=== PATIENT | female | born 1980 | race Caucasian/White ===

== ENCOUNTER → 2016-04-10 | Outpatient (CLI) | payer BC ==
[~2016-04-10] MED LIST: ASPCH81X PO; PRENTAB26 PO
[2016-04-10 13:15] LABS: PREG INTERNAL NEGATIVE QC NEG CLEAR BACKGROUND; PREG INTERNAL POSITIVE QC POS CONTROL LINE
== END | disposition home or self-care (01) ==
LOC: C.LABMFLN 11:17
PROVIDERS: ATTEND Family Medicine
DX: N91.2 Amenorrhea, unspecified (principal)

== ENCOUNTER → 2016-06-18 | Outpatient (CLI) | payer BC | END | disposition home or self-care (01) | LOC: C.LABMFLN 10:38 | PROVIDERS: ATTEND Obstetrics & Gynecology | DX: O09.299 Supervision of pregnancy with other poor reproductive or obstetric history, unspecified trimester (principal); Z3A.00 Weeks of gestation of pregnancy not specified ==

== ENCOUNTER → 2016-06-20 | Outpatient (CLI) | payer BC | END | disposition home or self-care (01) | LOC: C.LABMFLN 09:14 | PROVIDERS: ATTEND Obstetrics & Gynecology | DX: O09.299 Supervision of pregnancy with other poor reproductive or obstetric history, unspecified trimester (principal); Z3A.00 Weeks of gestation of pregnancy not specified ==

== ENCOUNTER → 2016-08-16 | Outpatient (CLI) | payer BC | END | disposition home or self-care (01) | LOC: C.LABMFLN 11:01 | PROVIDERS: ATTEND Obstetrics & Gynecology | DX: O09.299 Supervision of pregnancy with other poor reproductive or obstetric history, unspecified trimester (principal); Z3A.00 Weeks of gestation of pregnancy not specified ==

== ENCOUNTER → 2016-08-20 | Outpatient (CLI) | payer BC | END | disposition home or self-care (01) | LOC: C.LABMFLN 11:15 | PROVIDERS: ATTEND Obstetrics & Gynecology | DX: O09.299 Supervision of pregnancy with other poor reproductive or obstetric history, unspecified trimester (principal); Z3A.00 Weeks of gestation of pregnancy not specified ==

== ENCOUNTER → 2016-09-04 | Outpatient (CLI) | payer BC ==
[2016-09-04 16:33] LABS: URINE APPEARANCE CLEAR (CLEAR); URINE BILIRUBIN NEG (NEG); URINE COLOR YELLOW; URINE NITRITE NEG (NEG); URINE PH 5.5 (4.5-7.5); URINE SPECIFIC GRAVITY 1.019 (1.000-1.030); UROBILINOGEN NEG (NEG)
[2016-09-04 16:47] LABS: MANUAL MICROSCOPIC REQUIRED? NO; REVIEW REQ? NO
== END | disposition home or self-care (01) ==
LOC: C.LABSPEC 15:51
PROVIDERS: ATTEND Obstetrics & Gynecology
DX: O09.529 Supervision of elderly multigravida, unspecified trimester (principal); Z3A.00 Weeks of gestation of pregnancy not specified

== ENCOUNTER → 2016-09-12 | Outpatient (CLI) | payer BC ==
[2016-09-16 09:14] LABS: CHLAMYDIA TRACH RNA*** NOT DETECTED (NOT DETECTED); GC (NEIS GONORRHOEAE)RNA** NOT DETECTED (NOT DETECTED)
== END | disposition home or self-care (01) ==
LOC: C.LABSPEC 13:13
PROVIDERS: ATTEND Obstetrics & Gynecology
DX: O09.299 Supervision of pregnancy with other poor reproductive or obstetric history, unspecified trimester (principal)

== ENCOUNTER → 2016-09-12 | Outpatient (CLI) | payer BC ==
[2016-09-12 14:41] LABS: BASO % 0.3 %; BASO ABS # 0.02 K/uL (0-0.2); COMPLETE YES; EOS % 1.3 %; HEMATOCRIT 41.2 % (37-47); IG% 0.1 %; LYMPH % 15.8 %; LYMPH ABS # 1.18 K/uL (1.2-3.4); MEAN CELL VOLUME 86.4 fL (80-100); MEAN CORPUSCULAR HEMOGLOBIN 31.2 pg (25-34); MEAN CORPUSCULAR HGB CONC 36.2 g/dl (32-36); MEAN PLATELET VOLUME 9.8 fL (7.4-10.4); MONO % 9.8 %; NEUT % 72.7 %; PLATELET COUNT 266 K/uL (130-400); RED BLOOD COUNT 4.77 M/uL (4.2-5.4); WHITE BLOOD COUNT 7.45 K/uL (4.8-10.8)
== END | disposition home or self-care (01) ==
LOC: C.LAB1850 12:31
PROVIDERS: ATTEND Obstetrics & Gynecology
DX: O09.299 Supervision of pregnancy with other poor reproductive or obstetric history, unspecified trimester (principal)

== ENCOUNTER → 2016-09-30 | Outpatient (CLI) | payer BC | END | disposition home or self-care (01) | LOC: C.LAB1850 13:58 | PROVIDERS: ATTEND Obstetrics & Gynecology | DX: O09.299 Supervision of pregnancy with other poor reproductive or obstetric history, unspecified trimester (principal); Z3A.00 Weeks of gestation of pregnancy not specified ==

== ENCOUNTER → 2016-11-06 | Outpatient (CLI) | payer BC ==
[2016-11-06 17:45] LABS: GTGD 50 Grams
== END | disposition home or self-care (01) ==
LOC: C.LAB1850 16:12
PROVIDERS: ATTEND Obstetrics & Gynecology
DX: O09.291 Supervision of pregnancy with other poor reproductive or obstetric history, first trimester (principal)

== ENCOUNTER 2016-12-08 12:26 | Outpatient (CLI) | payer BC ==
[~2016-12-08] VITALS: Ht 165.1 cm; Wt 84.8 kg
[2016-12-08 14:35] VITALS: Ht 165.1 cm; Wt 84.8 kg
[2016-12-08] MEDS ORDERED: PRENTAB26 PO (14:37)
[2016-12-08] MEDS ORDERED: ASPCH81X PO (14:37)
== END 2016-12-08 13:25 | disposition home or self-care (01) ==
LOC: C.LD 12:26 → C.OPB 12:26
PROVIDERS: ATTEND Obstetrics & Gynecology
DX: O34.42 Maternal care for other abnormalities of cervix, second trimester (principal); O46.93 Antepartum hemorrhage, unspecified, third trimester; O09.522 Supervision of elderly multigravida, second trimester; Z3A.20 20 weeks gestation of pregnancy

== ENCOUNTER → 2017-01-29 | Outpatient (CLI) | payer BC ==
[2017-01-29 17:16] LABS: URINE APPEARANCE CLEAR (CLEAR); URINE BILIRUBIN NEG (NEG); URINE COLOR YELLOW; URINE NITRITE NEG (NEG); UROBILINOGEN NEG (NEG)
[2017-01-29 17:21] LABS: MANUAL MICROSCOPIC REQUIRED? NO; REVIEW REQ? YES
== END | disposition home or self-care (01) ==
LOC: C.LABSPEC 16:45
PROVIDERS: ATTEND Obstetrics & Gynecology
DX: O09.523 Supervision of elderly multigravida, third trimester (principal); Z3A.00 Weeks of gestation of pregnancy not specified

== ENCOUNTER → 2017-01-29 | Outpatient (CLI) | payer BC ==
[2017-01-29 18:08] LABS: HEMATOCRIT 38.3 % (37-47)
[2017-01-29 18:31] LABS: GTGD 50 Grams
== END | disposition home or self-care (01) ==
LOC: C.LAB1850 15:35
PROVIDERS: ATTEND Obstetrics & Gynecology
DX: O09.523 Supervision of elderly multigravida, third trimester (principal); Z3A.00 Weeks of gestation of pregnancy not specified

== ENCOUNTER → 2017-02-10 | Outpatient (CLI) | payer BC | END | disposition home or self-care (01) | LOC: C.LAB1850 08:48 | PROVIDERS: ATTEND Obstetrics & Gynecology | DX: O28.1 Abnormal biochemical finding on antenatal screening of mother (principal); Z3A.00 Weeks of gestation of pregnancy not specified ==

== ENCOUNTER → 2017-04-04 | Outpatient (CLI) | payer BC | END | disposition home or self-care (01) | LOC: C.LABSPEC 16:57 | PROVIDERS: ATTEND Obstetrics & Gynecology | DX: O09.523 Supervision of elderly multigravida, third trimester (principal) ==

== ENCOUNTER 2017-05-05 19:07 | Outpatient (CLI) | payer BC ==
[~2017-05-05] VITALS: Ht 165.1 cm; Wt 100.0 kg
[2017-05-05 20:08] VITALS: Ht 165.1 cm; Wt 100.0 kg
[2017-05-05] MEDS ORDERED: CLR10 PO (20:10)
[2017-05-06] MEDS ORDERED: DOCU-94 PO (08:54)
== END 2017-05-05 21:05 | disposition home or self-care (01) ==
LOC: C.OPB 19:07 → C.LD 19:07 → C.OPB 21:05 → EDSTATUS 05-06 16:10
PROVIDERS: ATTEND Obstetrics & Gynecology
DX: O48.0 Post-term pregnancy (principal); O34.43 Maternal care for other abnormalities of cervix, third trimester; O09.523 Supervision of elderly multigravida, third trimester; Z3A.41 41 weeks gestation of pregnancy

== ENCOUNTER 2017-05-06 08:03 | Inpatient (IN) | payer BC ==
[~2017-05-06] VITALS: Ht 165.1 cm; Wt 100.0 kg
[~2017-05-06 08:03] MED LIST changes: -ASPCH81X PO; +CLR10 PO
[2017-05-06 08:50] VITALS: Ht 165.1 cm; Wt 100.0 kg
[2017-05-06] MEDS ORDERED: DOCU-94 PO (08:54)
[2017-05-06] MEDS ORDERED: LACTATED RINGER'S 1000ML 1,000 ML IV PRN (09:14)
[2017-05-06] MEDS ORDERED: LACTATED RINGER'S 1000ML 500 ML IV PRN ×2 (09:17→17:35)
[2017-05-06] MEDS ORDERED: OXYTOCIN 30 UNITS/500ML NSS IV PRN (09:30)
[2017-05-06 09:47] LABS: HEMATOCRIT 38.3 % (37-47); HEMOGLOBIN 13.4 g/dL (12.0-16.0); MEAN CELL VOLUME 90.8 fL (80-100); MEAN CORPUSCULAR HEMOGLOBIN 31.8 pg (25-34); MEAN PLATELET VOLUME 9.5 fL (7.4-10.4); PLATELET COUNT 181 K/uL (130-400); RED CELL DISTRIBUTION WIDTH CV 13.9 % (11.5-14.5); RED CELL DISTRIBUTION WIDTH SD 45.7 fL (36.4-46.3); WHITE BLOOD COUNT 11.22 K/uL (4.8-10.8)
[2017-05-06] MEDS: LACTATED RINGER'S 1000ML 1,000 ML IV SCH ×2 (10:29→19:03)
[2017-05-06] MEDS ORDERED: BUPIVACAINE 0.25% 30 ML VIAL ONE (16:36)
[2017-05-06] MEDS ORDERED: EpHEDrine SULFATE INJ 50 MG/ML AMP ONE (16:37)
[2017-05-06] MEDS ORDERED: FENTANYL CITRATE INJ 50 MCG/1 ML 2 ML VIAL ONE (16:37)
[2017-05-06] MEDS ORDERED: FENTANYL 2MCG/ML ROPIV 1.25MG/ML 100ML BAG EPI ONE (16:38)
[2017-05-06] MEDS ORDERED: NALOXONE HCL INJ 1 MG in SODIUM CHLORIDE 0.9% 1000ML 1,000 ML IV PRN (17:35)
[2017-05-06] MEDS ORDERED: ONDANSETRON INJ 2 MG/ML 2 ML VIAL IV PRN (17:45)
[2017-05-06] MEDS ORDERED: DiphenhydrAMINE HCL 50 MG/ML VIAL IV PRN (17:45)
[2017-05-06] MEDS ORDERED: EpHEDrine SULFATE INJ 50 MG/ML AMP IV PRN (17:45)
[2017-05-06] MEDS ORDERED: NALBUPHINE HCL INJ 10 MG/ML AMP IV PRN (17:45)
[2017-05-06] MEDS ORDERED: NALOXONE HCL INJ 0.4 MG/1 ML VIAL/CARP IV PRN (17:45)
[2017-05-06] MEDS: FENTANYL 2MCG/ML ROPIV 1.25MG/ML 100ML BAG EPI PRN (19:05)
[2017-05-07] VITALS (15 sets, daily range): BP systolic 103–111; BP diastolic 61–64; PULSE 66–81; TEMP 36.6–36.7; O2SAT 97–100
[2017-05-07] MEDS: FENTANYL 2MCG/ML ROPIV 1.25MG/ML 100ML BAG EPI PRN (00:42)
[2017-05-07] MEDS: LACTATED RINGER'S 1000ML 1,000 ML IV SCH (02:17)
[2017-05-07] MEDS ORDERED: LACTATED RINGER'S 1000ML 1,000 ML IV SCH ×2 (05:42→07:30)
[2017-05-07] MEDS ORDERED: CITRIC ACID/SODIUM CITRATE 15 ML UDC PO ONE (05:45)
[2017-05-07] MEDS ORDERED: CITRIC ACID/SODIUM CITRATE 15 ML UDC ONE (06:03)
[2017-05-07] MEDS ORDERED: CEFAZOLIN IV 3,000 MG in SYRINGE 0 ML IV STA (06:06)
[2017-05-07] MEDS ORDERED: CARBOPROST TROMETHAMINE 250 MCG/ML AMP ONE (06:42)
--- NOTE | 2017-05-07 07:29 | [facility] Post Operative Brief Note ---
Immediate Operative Summary Operative Date May 07, 2017. Pre-Operative Diagnosis Primary Caesarean Section for Arrest of Descent Post-Operative Diagnosis same + left hysterotomy extension Procedure(s) Performed Lower Uterine Transverse Caesarean Section Surgeon Dr. Gaines Rn Hemodialysis Surgeon(s) Dr Rand Estimated Blood Loss 900 Findings Consistent with Post-Op Diagnosis Specimens A: Cord Blood B: Placenta Drains Kan - blood-tinged at conclusion of case Anesthesia Type L&D Only EPID Exist Complication(s) Extension of uterine incision, left apex into cervix Disposition Accompanied Pt To Recover: no Disposition: L&D
[2017-05-07] MEDS ORDERED: LANOLIN OINT EXT PRN (07:30)
[2017-05-07] MEDS ORDERED: BENZOCAINE 20% AER SPR 82.5 GM CAN EXT PRN (07:30)
[2017-05-07] MEDS ORDERED: MAGNESIUM HYDROXIDE SUSP 30 ML UDC PO PRN (07:30)
[2017-05-07] MEDS ORDERED: HYDROCORTISONE ACETATE 25 MG SUPP PR PRN (07:30)
[2017-05-07] MEDS ORDERED: DC INTRASPINAL MORPHINE PRN (07:45)
[2017-05-07] MEDS ORDERED: MoRPHine SULFATE PF 1 MG/ML 10 ML AMP/VIAL EPI PRN (07:45)
[2017-05-07] MEDS ORDERED: EpHEDrine SULFATE INJ 50 MG/ML AMP IV PRN (07:45)
[2017-05-07] MEDS ORDERED: ONDANSETRON INJ 2 MG/ML 2 ML VIAL IV PRN (07:45)
[2017-05-07] MEDS ORDERED: CONTINUE MEDICATION ONE (07:45)
[2017-05-07] MEDS ORDERED: HYDROmorphone INJ 1 MG/ML SYR IV PRN (07:45)
[2017-05-07] MEDS ORDERED: ATROPINE SULFATE 0.1 MG/ML 5ML SYR IV PRN (07:45)
[2017-05-07] MEDS ORDERED: FENTANYL CITRATE INJ 50 MCG/1 ML 2 ML VIAL IV PRN (07:45)
[2017-05-07] MEDS ORDERED: MoRPHine SULFATE 2 MG/ML CARP IV PRN (07:45)
[2017-05-07] MEDS ORDERED: DiphenhydrAMINE HCL 50 MG/ML VIAL IV PRN (07:45)
[2017-05-07] MEDS ORDERED: PHENYLEPHRINE 100MCG/ML 5ML SYR IV PRN (07:45)
[2017-05-07] MEDS ORDERED: NO NARCOTICS OR SEDATIVES SCH (07:45)
[2017-05-07] MEDS ORDERED: PROMETHAZINE HCL INJ 12.5 MG in SODIUM CHLORIDE 0.9% 50ML 50 ML IV PRN (07:45)
[2017-05-07] MEDS ORDERED: OXYTOCIN INJ 30 UNITS in LACTATED RINGER'S 1000ML 1,000 ML IV SCH (07:45)
--- NOTE | 2017-05-07 07:58 | Anesthesiology Progress Note ---
Anesthesia Post Op Note Date & Time May 07, 2017 at 07:58 Vital Signs Pain Intensity: 2.0 Notes Mental Status: alert / awake / arousable, participated in evaluation Pt Amnestic to Procedure: Yes Nausea / Vomiting: adequately controlled Pain: adequately controlled Airway Patency, RR, SpO2: stable & adequate BP & HR: stable & adequate Hydration State: stable & adequate Neuraxial Anesthesia: was administered, sensory block is resolving Anesthetic Complications: no major complications apparent
[2017-05-07] MEDS: DOCUSATE SODIUM 100 MG CAP PO SCH ×2 (08:00→20:07)
[2017-05-07 08:22] LABS: HEMATOCRIT 37.2 % (37-47)
[2017-05-07] MEDS: MEPERIDINE HCL 25 MG/ML CARP IV PRN ×2 (08:35→08:48)
--- NOTE | 2017-05-07 11:09 | OPERATIVE REPORT ---
DATE OF OPERATION: 05/07/2017 PREDELIVERY DIAGNOSES: 1. A 37-year-old G5, P2-0-2-2 at 41 weeks 3 days. 2. Induction of labor secondary to post-dates. 3. Advanced maternal age. 4. Arrest of descent. POSTDELIVERY DIAGNOSES: Same plus left hysterotomy extension to cervix. PROCEDURE PERFORMED: Primary low transverse section. SURGEON: Dr. Hidla Gaines. CLOCK AND WATCH HANDS DIPPER: Dr. Rand. ESTIMATED BLOOD LOSS: 900 mL. FINDINGS: Viable male , Apgars 8 and 9, weight 9 pounds 8 ounces. Normal tubes and ovaries. SPECIMENS: Cord blood and placenta. DRAINS: Kan blood tinged at the conclusion of the case. ANESTHESIA: Epidural redosing. COMPLICATIONS: Extension of uterine incision at the left apex of the hysterotomy into the cervix. DISPOSITION: Stable and good to recovery room. INDICATIONS FOR DELIVERY: Jennifer Suresh is a 37-year-old G5, P2-0-2-2 at 41 weeks 3 days, who underwent induction of labor secondary to post-dates , history of vaginal delivery x2. Both prior babies delivered at term with 8+ pounds. For this induction, the patient received a Kan balloon for cervical ripening. Then received Pitocin for induction of labor. She had artificial rupture of membranes for clear fluid. She progressed to complete with epidural anesthesia. She then pushed for an approximately 2 hours with a station not proceeding beyond 0 station. The patient was allowed to rest and due to her history of vaginal delivery x2 of relatively large babies in the past, we attempted to allow the baby to labor down with the use of the peanut ball for approximately 1 hour. She then began to push again for approximately 1 additional hour and at this point, the station did not progress beyond 0 station and decision was made for section due to arrest of descent. DESCRIPTION OF PROCEDURE: The patient was seen in her labor and delivery room where a section was discussed, risks of alternatives and benefits were reviewed. She elected to proceed with section. Informed consent was obtained. All questions were answered. She was taken to the operating room where epidural anesthesia was redosed. She was prepared and draped in the usual sterile fashion in the supine position with a leftward tilt. She received 3 grams of Ancef due to body weight of 100 kilograms. Timeout was confirmed. The Pfannenstiel skin incision was made with a scalpel and carried through to the underlying layer of fascia. This was nicked at midline and the incision was extended bilaterally bluntly. The superior aspect of the fascial incision was grasped with Lilian clamps x2, elevated off the underlying rectus abdominis muscles and dissected bluntly. The inferior aspect of the fascial incision was grasped with Lilian clamps and dissected off the underlying rectus abdominis muscle sharply and bluntly. The rectus muscles were in the midline. Peritoneum was entered bluntly digitally. The bladder flap was created using Metzenbaum scissors, a bladder blade was replaced. The hysterotomy incision was made with a scalpel and this incision was extended bilaterally bluntly. The head was wedged into the pelvis and an operating room assistant with sterile gloves was asked to provide upward pressure to dislodge the head from the pelvis. The head was then delivered and the baby was delivered from a cephalic presentation. Head delivered followed by the anterior and posterior shoulders followed by the body. The cord was doubly clamped and cut. The baby was handed off to the waiting pediatrics team. A spontaneous cry was heard. The cord segment was retained for cord gases. Cord blood was obtained. The placenta was then delivered manually. The uterus was exteriorized. The uterus was swept of all clots and debris. The uterus began to become firm. Pitocin was given. A left uterine hysterotomy extension was noted approximately 4-5 cm down the left side of the uterus, presumably from the large head wedged into the pelvis. Using 0 Vicryl in a running locked stitch, the extension was reapproximated. This achieved good hemostasis. At this time, delivery of baby and repair of the uterine extension approximately 700 mL of blood loss was estimated by visualization of lap sponges. We asked anesthesia to draw H&H labs as well as to type and cross the patient for blood products, due to concern for blood loss due to the hemorrhage occurring with the uterine extension; however, as we were able to get the bleeding to stop relatively quickly, we did not begin blood transfusion at that time as patient's vitals were stable and bleeding was controlled. Will plan to continue to watch vitals, urine output, and patient's condition and labs. At the time of delivery of the baby, there was appearance of bright red blood in the Kan catheter had previously been clear yellow. This was transient as later the Kan catheter urine appeared to be a dark tinged clear yellow. The suspicion was that there was some trauma to the bladder, both from extended period of maternal pushing as well as the process of dislodging the head from the pelvis and delivery through the hysterotomy. The hysterotomy incision was reapproximated with 0 Vicryl in a running locked stitch, a lwpiae-kx-lvcla modified [place] stitch was used on the left hysterotomy extension with an attempt to incorporate the left uterine vessels to obtain good hemostasis. The uterine incision was imbricated. The posterior uterus was evaluated and found to be normal. The uterus was returned to the abdomen. The hysterotomy incision and extension were then reevaluated with the uterus off of tension. Excellent hemostasis was noted throughout. Gutters were cleared of clots and debris. There was a small amount of oozing bleeding at the hysterotomy. This was contained using qemceg-sm-ybxii stitches, 1 additional unacwh-hw-qlxiv stitch was used with a 2-0 Vicryl. In evaluation of placement of stitches with respect to other pelvic structures ( ureter, etc) all sutures in the left uterine extension appeared to be on the body of the uterus within the broad ligament. The hysterotomy incision was evaluated and found to be hemostatic. Because of concerns of future oozing of bleeding due to the hysterotomy extension, a large piece of Gelfoam coagulant foam was inserted at the extension site to help with hemostatic control. The fascia was grasped with Lilian clamps and reapproximated using 0 Vicryl in a running stitch. The subcutaneous tissue was irrigated and dried and reapproximated using a 2-0 plain gut in a running stitch. Skin was reapproximated using 4-0 Vicryl in a running subcuticular stitch. The patient and the baby tolerated the delivery well. The patient was taken to the postoperative recovery area after Steri-Strips and bandage were applied and recovered in her room on labor and delivery. Preoperative and intraoperative hemoglobin was 13. Will plan to recheck H/H later today to ensure patient's stability. At the conclusion of the section, patient's vital signs were stable. I attest to the content of the Intraoperative Record and any orders documented therein. Any exceptions are noted below. ABRAN
[2017-05-07] MEDS ORDERED: ACETAMINOPHEN IV 100 ML IV ONE (12:30)
[2017-05-07] MEDS: SIMETHICONE 80 MG CHEW PO SCH ×3 (12:40→20:06)
[2017-05-07 16:00] LABS: HEMATOCRIT 32.8 % (37-47); HEMOGLOBIN 11.3 g/dL (12.0-16.0)
--- NOTE | 2017-05-07 17:43 | Anesthesia Procedure Note ---
Anesthesia Epidural Removal Nt Date & Time May 07, 2017 at 17:43 Vital Signs Pain Intensity: 4.0 Vital Signs Past 12 Hours Date Time Temp Pulse Resp B/P (MAP) Pulse Ox O2 Delivery O2 Flow Rate FiO2 05/07/17 16:58 16 98 05/07/17 15:30 97 Room Air 05/07/17 15:30 36.6 76 18 103/61 (75) 97 Room Air 05/07/17 15:30 18 97 05/07/17 14:49 99 Room Air 05/07/17 14:30 18 98 05/07/17 13:30 18 98 05/07/17 12:30 18 100 05/07/17 11:30 36.7 66 18 106/62 (77) 97 Room Air 05/07/17 11:30 97 Room Air 05/07/17 11:30 20 99 Notes Mental Status: alert / awake / arousable, participated in evaluation Nausea / Vomiting: adequately controlled Pain: adequately controlled Airway Patency, RR, SpO2: stable & adequate BP & HR: stable & adequate Hydration State: stable & adequate Neuraxial Anesthesia: was administered Anesthetic Complications: no major complications apparent, pt satisfied with anesthetic care Epidural: removed without complications, with tip intact
--- NOTE | 2017-05-07 20:38 | Progress Note ---
Progress Note Date of Service May 07, 2017. Progress Note ctsp due to pain not controlled by duramorph and iv tylenol and h/o bleeding at c/s due to hysterotomy extension Dr. Pérez anesth called me to ok giving pt toradol. I felt it prudent to see patient just to assess any concern for internal bleeding s/ pt notes uterine pain and some incisional. drinking without problem, sitting in bed and visiting with family. smiling. o/ af vss, pulse is 70s, bp normal. fundus 1 down and appropriately tender. no rebound or guarding. abd soft. no cvat. dressing c/d/i. a/ pod #0, s/p c/s with hysterotomy extension with repair. no evidence of ongoing bleeding internally, hgbs reviewed p/ we will try toradol to control her pain. plan cbc in am. pt aware of my thought process.
[2017-05-07] MEDS ORDERED: KETOROLAC TROMETHAMINE 30 MG/ML VIAL IV. PRN (20:45)
[2017-05-07] MEDS ORDERED: KETOROLAC TROMETHAMINE 30 MG/ML VIAL ONE (21:51)
[2017-05-07] MEDS ORDERED: KETOROLAC TROMETHAMINE 30 MG/ML VIAL IV PRN (22:00)
[2017-05-08] VITALS (9 sets, daily range): BP systolic 96–121; BP diastolic 52–68; PULSE 71–82; TEMP 36.4–36.7; O2SAT 98–99
[2017-05-08] MEDS ORDERED: KETOROLAC TROMETHAMINE 30 MG/ML VIAL IV. PRN (00:40)
[2017-05-08] MEDS ORDERED: ONDANSETRON INJ 2 MG/ML 2 ML VIAL IV PRN (00:40)
[2017-05-08] MEDS ORDERED: DiphenhydrAMINE HCL 50 MG/ML VIAL IV PRN (00:40)
[2017-05-08] MEDS ORDERED: PROMETHAZINE HCL INJ 25 MG in SODIUM CHLORIDE 0.9% 50ML 50 ML IV PRN (00:40)
[2017-05-08] MEDS ORDERED: OXYCODONE/ACETAMINOPHEN 5-325 TAB PO PRN (00:40)
[2017-05-08 04:46] LABS: BASO % 0.2 %; BASO ABS # 0.03 K/uL (0-0.2); EOS % 0.8 %; EOS ABS # 0.13 K/uL (0-0.5); HEMATOCRIT 31.3 % (37-47); HEMOGLOBIN 10.9 g/dL (12.0-16.0); IG# 0.09 K/uL (0.00-0.02); LYMPH ABS # 1.38 K/uL (1.2-3.4); MEAN CELL VOLUME 90.2 fL (80-100); MEAN CORPUSCULAR HEMOGLOBIN 31.4 pg (25-34); MEAN CORPUSCULAR HGB CONC 34.8 g/dl (32-36); MEAN PLATELET VOLUME 9.5 fL (7.4-10.4); MONO % 8.4 %; MONO ABS # 1.44 K/uL (0.11-0.59); NEUT % 82.1 %; NEUT ABS # 14.16 K/uL (1.4-6.5); PLATELET COUNT 117 K/uL (130-400); RED CELL DISTRIBUTION WIDTH CV 14.1 % (11.5-14.5); RED CELL DISTRIBUTION WIDTH SD 46.3 fL (36.4-46.3); WHITE BLOOD COUNT 17.23 K/uL (4.8-10.8)
--- NOTE | 2017-05-08 08:17 | Progress Note ---
Subjective May 08, 2017. Subjective conversation w/ patient, physical exam Passing Gas: Yes Diet Tolerance: Clear Liquids Lochia: Small Feeding Type: Breast Feeding Pain: pain control ok Comment: just had lainez out so no void yet. has not been ambulating much. pain control was better after toradol. tolerating crackers. Objective Vital Signs Date Time Temp Pulse Resp B/P (MAP) Pulse Ox O2 Delivery O2 Flow Rate FiO2 05/08/17 04:00 20 98 05/08/17 03:00 20 98 05/08/17 03:00 36.6 82 20 121/68 (85) 99 Room Air 05/08/17 02:00 18 98 05/08/17 01:00 18 99 05/08/17 00:30 Room Air 05/08/17 00:30 36.7 73 20 115/58 (77) Room Air 05/08/17 00:00 20 99 05/07/17 22:30 16 99 05/07/17 21:30 18 99 05/07/17 20:30 18 98 05/07/17 20:15 36.7 81 18 111/64 (80) 99 Room Air 05/07/17 19:30 20 99 05/07/17 18:30 18 99 05/07/17 17:30 18 99 05/07/17 16:58 16 98 05/07/17 16:30 18 98 05/07/17 15:30 97 Room Air 05/07/17 15:30 36.6 76 18 103/61 (75) 97 Room Air 05/07/17 15:30 18 97 05/07/17 14:49 99 Room Air 05/07/17 14:30 18 98 05/07/17 13:30 18 98 05/07/17 12:30 18 100 05/07/17 11:30 36.7 66 18 106/62 (77) 97 Room Air 05/07/17 11:30 97 Room Air 05/07/17 11:30 20 99 Physical Exam General Appearance: WELL-APPEARING, WD/WN, NO APPARENT DISTRESS Respiratory/Chest: lungs clear Cardiovascular: regular rate, rhythm Abdomen: non tender, soft Fundus: Firm, Tender (appropriate. no peritoneal signs.), Relation to Umbilicus (1 down) Incision Description: Clean, Dry & Intact (w/ steris) Extremities: non-tender Laboratory Results Last 24 Hours Test 05/07/17 15:49 05/08/17 04:12 Hemoglobin 11.3 g/dL 10.9 g/dL Hematocrit 32.8 % 31.3 % White Blood Count 17.23 K/uL Red Blood Count 3.47 M/uL Mean Corpuscular Volume 90.2 fL Mean Corpuscular Hemoglobin 31.4 pg Mean Corpuscular Hemoglobin Concent 34.8 g/dl Platelet Count 117 K/uL Mean Platelet Volume 9.5 fL Neutrophils (%) (Auto) 82.1 % Lymphocytes (%) (Auto) 8.0 % Monocytes (%) (Auto) 8.4 % Eosinophils (%) (Auto) 0.8 % Basophils (%) (Auto) 0.2 % Neutrophils # (Auto) 14.16 K/uL Lymphocytes # (Auto) 1.38 K/uL Monocytes # (Auto) 1.44 K/uL Eosinophils # (Auto) 0.13 K/uL Basophils # (Auto) 0.03 K/uL RDW Standard Deviation 46.3 fL RDW Coefficient of Variation 14.1 % Immature Granulocyte % (Auto) 0.5 % Immature Granulocyte # (Auto) 0.09 K/uL Assessment and Plan Post-Op Day#: 1 Continue Routine Care: stable, hgb has trended down but seems reasonable for the blood loss. no evidence of ongoing bleeding. pt to ambulate, advance diet, await void, po pain meds.
[2017-05-08] MEDS: SIMETHICONE 80 MG CHEW PO SCH ×3 (08:32→17:41)
[2017-05-08] MEDS: DOCUSATE SODIUM 100 MG CAP PO SCH (08:32)
[2017-05-08] MEDS: IBUPROFEN 600 MG TAB PO PRN ×3 (08:33→17:41)
[2017-05-08] MEDS: OXYCODONE/ACETAMINOPHEN 5-325 TAB PO PRN ×3 (09:43→17:40)
[2017-05-08] MEDS ORDERED: OXYC-57 PO (15:49)
--- NOTE | 2017-05-08 15:49 | Discharge Instructions ---
Discharge Instructions Date of Service May 08, 2017. Admission Reason for Admission: Induction Discharge Discharge Diagnosis / Problem: Post Discharge Goals Goal(s): Specific Goal(s) Activity Recommendations Activity Limitations: per Instructions/Follow-up section . Instructions / Follow-Up Instructions / Follow-Up ACTIVITY RECOMMENDATIONS: * Gradual return to full activity over the next 2-3 weeks. * No lifting - nothing heavier than baby over the next 2-3 weeks. * Do not engage in vigorous exercise, sexual activity or sports until cleared by your physician. * Do not drive or operate any motorized equipment until cleared by your physician. * You may shower/bathe daily. MEDICATIONS: For discomfort or pain, you may use Acetaminophen (Tylenol), Ibuprofen (Advil), or Naproxen (Aleve) following the package directions. For constipation you may use Colace following the package directions. BREAST CARE: If you are not breast feeding: * Wear a supportive bra 24 hours a day for one to two weeks. * Avoid stimulating your breasts and nipples as much as possible during the first few weeks after delivery. * When taking a shower, have the warm water hit your back, not breasts. * When your breasts feel full, apply ice packs. Usually three to four times a day helps ease the discomfort. * Take a mild pain medication (Tylenol / Motrin) when you are uncomfortable. If breast feeding: * Use breast milk to lubricate nipples. Lansinoh cream may be used for sore nipples. You do not need to remove cream prior to breast feeding. If using a different brand of cream, check the label for directions regarding removal of cream prior to nursing. * Wear a supportive bra. * If having problems with breasts or breast feeding, call a medical social consultant or your health care provider. SPECIAL CARE INSTRUCTIONS: When you are discharged from the hospital, it is important for you to follow the instructions listed below: * During the first week at home, you should be able to care for yourself and your baby. In addition, the usual light household activities are encouraged. * Limit your activities to the way you feel. Do not try to clean the house or move furniture. Be sensible. * If you actively engage in sports and have done so up until the time of your delivery, you may resume these activities as soon as you feel able. This may take up to one month or even longer. Use good judgment. * Continue to take your vitamins for at least six weeks after the of your baby. * Your diet need not be limited unless you were on a special diet before your delivery. Breast-feeding mothers need around 2500 calories per day and at least 64-80 ounces of fluid per day (8 to 10 glasses). * You should eat foods from the four major food groups. Crash diets or fad diets are to be avoided. Eating lean meats, fresh fruits and vegetables, low-fat dairy products, high fiber foods and a regular exercise program, will help you get back to your pre- weight without putting your health at risk. * Constipation is sometimes a problem after delivery. Take a mild laxative as needed. If breast feeding, Milk of Magnesia is acceptable to use. You may use a suppository or Fleets enema. * A daily shower or tub bath is suggested. Wash incision daily with warm soapy water and pat dry. It doesn't need to be covered unless drainage is present. * A bloody vaginal discharge will usually continue until around four weeks . A small amount of bleeding may continue for as long as six weeks. Vaginal discharge changes from the bright red bleeding after delivery to pink then brownish and finally yellowish-pink before becoming white and disappearing. * Bleeding may increase with activity. Your first period may come in 4-8 weeks. If you are breast feeding, your period may be delayed even longer. * Polson (sex) can begin whenever both you and your partner feel comfortable and do not have any form of genital infection. It is recommended that you wait at least six weeks for internal and external healing to occur. If you have questions, please talk to your health care practitioner. A condom should be used to prevent infection and . * Foreplay, gentle intercourse and lubrication is very important the first several times to prevent pain. A water-based lubricant such as K-Y jelly or Astroglide may be used. * If you have RH negative blood and your baby is RH positive, you will receive RHOGAM by injection prior to discharge. The nurse will give you a card to keep with you that has the date and place that you received RHOGAM after delivery. * During your care, you had a Rubella screen done to check for the presence of rubella antibodies in your blood. If your test was negative, you will receive a Rubella vaccine prior to discharge. This vaccine may cause a fever, soreness at the injection site and flu-like symptoms. If these symptoms persist, notify your health care practitioner. is not advised for one month after a Rubella vaccine. * Verbalizes understanding of car seat law as reviewed with patient nursing. * Car Seat hand-out given and reviewed with patient by nursing. * Shaken baby information reviewed with patient by nursing. Call you doctor if: * Heavy bleeding (saturating several pads an hour) or passing clots the size of your fist. * A fever >101 degrees F (38.3 degrees C) on two occasions four hours apart and /or chills. * Unusual pain in the pelvic or vaginal areas. * Call the doctor for any increased redness, drainage or swelling around the incision and any pain unrelieved by prescribed pain medication. * "Baby Blues" lasting longer than two weeks. If you have any questions or concerns, call your health care practitioner at . FOLLOW UP VISIT: * Please call the office at to schedule a 6 week examination. It is important you keep this appointment. It is important for you to make arrangements for either yearly or twice yearly check-ups thereafter. Current Hospital Diet Patient's current hospital diet: Regular OB Diet Discharge Diet Recommended Diet: Regular Diet Procedures Procedures Performed: Lower Uterine Transverse Caesarean Section Pending Studies Studies pending at discharge: no Medical Emergencies . Who to Call and When: Medical Emergencies: If at any time you feel your situation is an emergency, please call [phone] immediately. . Non-Emergent Contact Non-Emergency issues call your: Primary Care Provider . . "Provider Documentation" section prepared by Cecy Carrillo. . [place] Drug Monitoring Program Search Results: patient reviewed within database, no issues identified
--- NOTE | 2017-05-08 15:51 | Progress Note ---
Progress Note Date of Service May 08, 2017. Progress Note being transferred for bilious emesis to NICU care and mom requests discharge. Anemia postoperatively is noted however she is clinically doing well and vitals are stable without any tachycardia. Rx for percocet provided # 30, and patient is to f/u in office at usual 6wk interval.
[2017-05-08] MEDS ORDERED: BISACODYL 5 MG TABEC PO ONE (22:00)
--- NOTE | 2017-05-12 11:36 | Discharge Summary ---
Discharge Summary Date of Service May 12, 2017. Discharge Summary Admission Date: May 06, 2017 at 08:03 Discharge Date: May 08, 2017 Discharge Disposition: Home Principal Diagnosis: 41 weeks gestation Procedures: Primary low transverse section Consultations: anesthesia Medication Reconciliation New Medications: Oxycodone/Acetaminophen 5MG/325MG (Percocet 5MG/325MG) Tab 2 TAB PO Q4H PRN for Pain - Pain Scale 6-10, #30 TAB PAIN Continued Medications: Docusate Sodium (Colace) 100 Mg Cap 1 CAP PO BID for 15 Days, #30 CAP Loratadine (Claritin) 10 Mg Tab 10 MG PO DAILY, TAB Multivit/Min/Iron/Fol Ac/Pren ( Vitamin) Tab 1 TAB PO DAILY, TAB Discharge Exam Please see progress note exam from day of discharge. Hospital Course Patient is 37yo @ 41 3/7 and was admitted for IOL secondary to post- dates . She progressed to complete, pushed for 3 hours, and had arrest of descent. PLTCS performed, recovered well. Per charting, discharged home per patient request POD#1 due to infant transfer to NICU for bilious emesis. Total Time Spent: Less than 30 minutes This includes examination of the patient, discharge planning, medication reconciliation, and communication with other providers. Discharge Instructions Please refer to the electronic Patient Visit Report (Discharge Instructions) for additional information. Follow-Up 6w in office.
== END 2017-05-08 19:30 | disposition home or self-care (01) | DRG 766 ==
LOC: C.LD 08:03 → C.OBG 05-07 11:57
PROVIDERS: ADMIT Obstetrics & Gynecology; ATTEND Obstetrics & Gynecology
PROC: 3E033VJ Introduction of Other Hormone into Peripheral Vein, Percutaneous Approach (ICD-10-PCS; principal; 2017-05-07 05:43)
PROC: 10D00Z1 Extraction of Products of Conception, Low, Open Approach (ICD-10-PCS; principal; 2017-05-07 05:43)
DX: O48.0 Post-term pregnancy (principal); O62.1 Secondary uterine inertia; O09.523 Supervision of elderly multigravida, third trimester; Z3A.41 41 weeks gestation of pregnancy

== ENCOUNTER → 2017-06-19 | Outpatient (CLI) | payer BC ==
[~2017-06-19] MED LIST changes: +DOCU-94 PO; +OXYC-57 PO
== END | disposition home or self-care (01) ==
LOC: C.PAPS 16:18
PROVIDERS: ATTEND Obstetrics & Gynecology
DX: Z39.2 Encounter for routine postpartum follow-up (principal)

== ENCOUNTER 2022-05-17 05:40 | Inpatient (IN) ==
--- NOTE | 2022-05-14 11:18 | Anesthesiology Consultation ---
Date of Service May 14, 2022 Assessment & Plan (1) Encounter for pre-operative examination: Chart Review Chart Review: data entry machine operator initiated - Pt did have nausea with previous -COVID screening: Per PAT nursing assessment on 05/14/22. No known COVID-19 positive contacts or current COVID-19 related symptoms. Travel screen negative. Patient is NOT vaccinated for Covid. At surgeon discretion if preop Covid testi ng being done. Pt seen by [facility] Key Account Director 02/05/22= Referred for assessment echocardiography as a new patient due to advanced maternal age. Current is otherwise uncomplicated aside from being told she has a marginal low placenta that is being monitored. Patient's heart appears normal. No further follow-up in the cardiology clinic as necessary prior to delivery unless a new concern or question arises. No contraindication from a cardiac standpoint to deliver at [facility]. Pediatric cardiology team at [facility] could be consulted at any time should there be a concern about baby's cardiovascular status. 05/07/17= Epidural dosed (epidural given at L3-L4 with 1 attempt) (C- section done due to "arrest of descent") History Surgery Operation Date: 05/17/22 07:30 Proposed Procedures p Section (Delivery of Baby Through Abdominal Incision) - Emy Padilla MD, FACOG s Bilateral Tubal Ligation - Emy Padilla MD, FACOG Height/Weight Height: 5 ft 5 in Weight: 102.512 kg Allergies Allergy/AdvReac Type Severity Reaction Status Date / Time No Known Drug Allergies Allergy Unknown NONE Verified 05/14/22 10:42 Medications Home Medications Medication Instructions Recorded Confirmed Last Taken prenat.vits,cherrie,zzy-bhvq-hecti 1 tab PO HS 10/17/21 05/14/22 Unknown omega-3 fatty acids 1,000 mg PO HS 05/14/22 05/14/22 Unknown Past Medical History Medical History History of COVID-19 most recent 6-8 months ago, home test, not hosp; mild symptoms>resolved. Low lying placenta, antepartum History of- has since resolved with progression of Past Surgical History Surgical History H/O wisdom tooth extraction Hx of section "got very nauseous right before baby was born in the OR" S/P tonsillectomy Social History Smoking Status: Never smoker Do You Dip or Chew Tobacco: No Hx Alcohol Use: Yes ("not while ") alcohol intake frequency: holidays/special occasions only Hx Substance Use: No substance use type: does not use
--- NOTE | 2022-05-16 17:16 | History & Physical Report ---
Date of Service May 16, 2022 Assessment & Plan (1) Previous delivery affecting , antepartum: Plan: patient is a 42 yo multiparous female with a prior LTCS requesting repeat LTCS with bilateral salpingectomies because of unwanted fertility and multiparity. hte procedures and their risks were reviewed with the patient and all of her questions were answered to her satisfaction and she is willing to proceed. History of Present Illness Primary Care Provider: Ida Monique MD patient is a 42 yo female female [facility]05/23/22 who presents at 39 1/7 weeks for repeat section and bilateral salpingectomies. she has had 2 's then had a LTCS with her last because of failure to progress and macrosomia. this has been complicated by AMA over 40 and polyhydramnios which has resulted in an unstable lie. the baby has been breech until today with a DVP of 6.5cm. baby has been active and she is experiencing only mild irregular contractions. she would like to still proceed with repeat LTCS with salpingectomies now even though baby is now vertex. Allergies Allergy/AdvReac Type Severity Reaction Status Date / Time No Known Drug Allergies Allergy Unknown NONE Verified 05/16/22 14:52 Home Medications Medication Instructions Recorded Confirmed Type prenat.vits,cherrie,hxw-crqv-yxwyb 1 tab PO HS 10/17/21 05/16/22 History omega-3 fatty acids 1,000 mg PO HS 05/14/22 05/16/22 History Patient History Medical History History of COVID-19 most recent 6-8 months ago, home test, not hosp; mild symptoms>resolved. Low lying placenta, antepartum History of- has since resolved with progression of Surgical History H/O wisdom tooth extraction Hx of section "got very nauseous right before baby was born in the OR" S/P tonsillectomy Social History (Updated 10/17/21 @ 07:40 by Litzy John) Smoking Status: Never smoker Second Hand Exposure: No; Hx Alcohol Use: Yes ("not while ") Hx Substance Use: No Preferred Language: Spanish Communication Ability: Effective Talent Acquisition Partner Required: No Beliefs That Will Affect Care: None marital status: marital status details: Shakeel (50) [phone] Current Living Situation: Spouse and Family Current Living Situation Comment: lives with spouse 3children, 2 dogs, 2 cats, pt mask and gloves for litte current occupational status: unemployed Feels Safe at Home: Yes Assistive Devices: None Review of Systems All systems reviewed & are unremarkable except as noted in HPI & below Physical Exam Constitutional: WD/WN, vitals as above Respiratory: normal respiratory effort, lungs clear to auscultation Cardiovascular: RRR, no murmur, no edema Psychiatric: A+Ox3, euthymic affect Genitourinary: OB Exam Abdomen: + fundal height (term) and + vertex; no irregular contractions OB Exam Monitor Tracing: + external FHT monitor used, + external uterine monitor used, + category I and + normal FHT variability Coding Level of Care Code None Diagnoses Previous delivery affecting , antepartum O34.219
[2022-05-17] MEDS ORDERED: LACTATED RINGER'S 1,000 ML IV SCH ×2 (05:45→09:00)
[2022-05-17] MEDS ORDERED: CITRIC ACID/SODIUM CITRATE 15 ML UDC PO ONE (05:49)
[2022-05-17 06:15] LABS: Basophils # (auto) 0.04 K/uL (0-0.2); Basophils % (auto) 0.4 %; Hematocrit (blood only) 36.2 % (37.0-47.0); Hemoglobin 12.8 g/dl (12.0-16.0); Immature Granulocytes # (auto) 0.07 K/uL (0.01-0.20); Immature Granulocytes % (auto) 0.7 %; Lymphocytes # (auto) 2.42 K/uL (1.2-3.4); Lymphocytes % (auto) 24.2 %; Mean Corpuscular Hemoglobin 30.5 pg (25.0-34.0); Mean Corpuscular Hgb Conc 35.4 g/dL (32.0-36.0); Mean Corpuscular Volume 86.4 fL (80.0-100.0); Mean Platelet Volume 9.2 fL (9.4-12.4); Monocytes # (auto) 0.88 K/uL (0.11-0.59); Monocytes % (auto) 8.8 %; Neutrophils # (auto) 6.51 K/uL (1.40-6.50); Neutrophils % (auto) 64.9 %; Platelet Count 252 K/uL (130-400); RDW Coefficient of Variation 13.4 % (11.5-14.5); RDW Standard Deviation 41.5 fL (36.4-46.3); Red Blood Count 4.19 M/uL (4.20-5.40); White Blood Count 10.02 K/ul (4.8-10.8)
[2022-05-17] MEDS ORDERED: PHENYLEPHRINE 100MCG/ML 5ML SYR ONE (06:40)
[2022-05-17] MEDS ORDERED: MoRPHine SULFATE PF 1 MG/ML 10 ML AMP/VIAL ONE (06:40)
[2022-05-17] MEDS ORDERED: OXYTOCIN 10 UNITS/ML 10ML VIAL ONE (06:40)
[2022-05-17] MEDS ORDERED: ONDANSETRON INJ 2 MG/ML 2 ML VIAL ONE (06:40)
[2022-05-17] MEDS ORDERED: fentaNYL citrate 100 MCG/2 ML VIAL ONE (06:41)
--- NOTE | 2022-05-17 07:33 | History & Physical Bridge Note ---
Date of Service May 17, 2022 History & Physical Bridge Note I have examined the patient, reviewed the History & Physical and in the interval since the performance of the History & Physical I have noted the following changes of clinical significance: no changes noted
[2022-05-17] MEDS ORDERED: LACTATED RINGER'S 500 ML IV PRN (07:54)
[2022-05-17] MEDS ORDERED: ePHEDrine sulfate 50 MG/ML AMP IV PRN (07:54)
[2022-05-17] MEDS ORDERED: MoRPHine SULFATE PF 1 MG/ML 10 ML AMP/VIAL INT SPINAL ONE (07:54)
[2022-05-17] MEDS ORDERED: NALOXONE HCL 0.4 MG/1 ML VIAL/CARP IV PRN (07:54)
[2022-05-17] MEDS ORDERED: ONDANSETRON INJ 2 MG/ML 2 ML VIAL IV PRN (07:54)
[2022-05-17] MEDS ORDERED: NALOXONE HCL 0.08 MG in SYRINGE 1.8 ML IV PRN (07:54)
[2022-05-17] MEDS ORDERED: NALBUPHINE HCL INJ 10 MG/ML AMP IV PRN (07:54)
[2022-05-17] MEDS ORDERED: NALOXONE HCL 1 MG in SODIUM CHLORIDE 0.9% 1000ML 1,000 ML IV PRN (07:54)
[2022-05-17] MEDS ORDERED: PROMETHAZINE HCL 25 MG in SODIUM CHLORIDE 0.9% 50 ML IV PRN (07:54)
[2022-05-17] MEDS ORDERED: MoRPHine SULFATE 2 MG/ML CARP IV PRN (07:54)
[2022-05-17] MEDS ORDERED: diphenhydrAMINE 50 MG/ML VIAL IV PRN (07:54)
[2022-05-17] MEDS ORDERED: NO NARCOTICS OR SEDATIVES SCH (08:00)
[2022-05-17] MEDS ORDERED: DC INTRASPINAL MORPHINE SCH (08:00)
[2022-05-17] MEDS ORDERED: SODIUM CHLORIDE 0.9% 1000ML 1,000 ML IV SCH (08:00)
[2022-05-17] MEDS ORDERED: BENZOCAINE 20% AER SPR 82.5 GM CAN EXT PRN (08:58)
[2022-05-17] MEDS ORDERED: HYDROCORTISONE ACETATE 25 MG SUPP PR PRN (08:58)
[2022-05-17] MEDS ORDERED: DIPHTHERIA/TETANUS/PERTUSSIS 0.5mL SYR/VIAL (Age 7+yrs) IM ONE (08:58)
[2022-05-17] MEDS ORDERED: MAGNESIUM HYDROXIDE SUSP 30 ML UDC PO PRN (08:58)
[2022-05-17] MEDS ORDERED: SENNA 8.6 MG TAB PO PRN (08:58)
[2022-05-17] MEDS ORDERED: OXYTOCIN 20 UNITS in LACTATED RINGER'S 1,000 ML IV SCH ×2 (09:00→19:00)
--- NOTE | 2022-05-17 09:09 | Anesthesiology Progress Note ---
Date of Service May 17, 2022 Anesthesia Post Procedure Vital Signs Vital Signs: Temp Pulse Resp BP Pulse Ox 05/17/22 09:05 73 99 05/17/22 09:00 70 100 05/17/22 09:01 69 122/60 05/17/22 06:43 60 117/70 05/17/22 05:58 36.5 C 20 Transfer of Care Handoff Completed per policy Notes Mental Status: alert / awake / arousable and participated in evaluation Patient Amnestic to Procedure: No Nausea / Vomiting: adequately controlled Pain: adequately controlled Airway Patency, RR, SpO2: stable & adequate BP & HR: stable & adequate Hydration State: stable & adequate Neuraxial Anesthesia: was administered and sensory block is resolving Anesthetic Complications: no major complications apparent and Pt Satisfied with anesthetic care
--- NOTE | 2022-05-17 09:48 | Post Operative Brief Note ---
PG Immediate Post Op with CF Date of Surgery May 17, 2022 Pre & Post Diagnosis Operation Date: 05/17/22 07:30 Pre-Op Diagnosis: Prior Caesarean Section;Unwanted Fertility;Multiparity Post-Op Diagnosis: Same;Delivery of a live female child at 0808 I identified the patient and participated in the time-out.: Yes Procedure Operation Date: 05/17/22 07:30 Actual Procedures p Section (Delivery of Baby Through Abdominal Incision) - Emy Padilla MD, FACOG s Bilateral salpingectomies - Emy Padilla MD, FACOG Surgeon Emy Padilla MD, FACOG Software Development Specialist Yohana Rand MD and Berkley Barton MS Estimated Blood Loss 450 Findings Consistent with Post-Op Diagnosis Specimens Specimen Description: A. Placenta-hold B. Cord Blood C. Left and right fallopian tubes Drains Kan Catheter Anesthesia Type Spinal Complications none Disposition Accompanied Patient To Recovery: Yes Disposition: L&D
--- NOTE | 2022-05-17 10:01 | Operative Report ---
PG Post Operative Report Pre & Post Diagnosis Operation Date: 05/17/22 07:30 Pre-Op Diagnosis: Prior Caesarean Section;Unwanted Fertility;Multiparity Post-Op Diagnosis: Same;Delivery of a live female child at 0808 I identified the patient and participated in the time-out.: Yes Procedure Operation Date: 05/17/22 07:30 Actual Procedures p Section (Delivery of Baby Through Abdominal Incision) - Emy Padilla MD, FACOG s Bilateral Tubal Ligation - Emy Padilla MD, FACOG Surgeon Emy Padilla MD, FACOG Silo Operator Yohana Rand MD and Berkley Barton MS Estimated Blood Loss 450 Findings Consistent with Post-Op Diagnosis Specimens placenta bilateral fallopian tubes Drains Kan to straight drainage Anesthesia Type Spinal Complications none Disposition Accompanied Patient To Recovery: Yes Disposition: L&D Indications Patient is a 42-year-old 6 para 3-0-0-3 female EDC of 05/23/2022 who presents for repeat section and bilateral salpingectomy. She has had 2 vaginal births followed by a primary section for failure to progress. She is requesting repeat section with bilateral salpingectomy because of unwanted fertility and multiparity.This has had an unstable lie and had been breech since 36 weeks. The day prior to the section it is now vertex however we will still proceed with the repeat section and bilateral salpingectomy. Description of Procedure After the patient received adequate subarachnoid block she was prepped and draped in usual sterile fashion. A low transverse skin incision was made through her prior scar and carried to the fascia with the same scalpel. The fascial incision was then extended with Velasco scissors the edges were then grasped with Lilian clamps and the underlying rectus muscles bluntly sharply dissected off of the overlying fascia. There is a separation in the rectus m uscles in the mid portion and this was an entered bluntly into the peritoneal cavity. The rectus muscles were then divided along the midline in a blunt manner. The bladder was then taken down off the anterior surface of the uterus and placed behind the bladder blade. The lower uterine segment was entered with a scalpel to the level of the membranes. The incision was then extended blunt fashion transversely. Membranes were ruptured for clear fluid. The infant was delivered from the vertex presentation with moderate fundal pressure and assistance of the vacuum to bring the head up into the incision. After the head was delivered the rest of the delivered easily. She was vigorous crying and moving all 4 limbs. The cord was clamped and cut and the handed off to Dr. Miller who was in attendance as ripper operator. The placenta was manually removed. The uterus was then exteriorized and covered with a clean lap sponge. The uterine cavity was then explored with a clean lap sponge and was found to have no placental tissue or membranes in the fundus however there was retained membranes in the lower uterine segment which were removed with a ring forcep. The uterus was then closed in 2 layers in a running locking retaining fashion with 0 Monocryl. Hemostasis noted to be satisfactory at this time. Direct pressure with a lap sponge was placed against the uterine incision and attention turned to the salpingectomy. The left Fallopian tube was identified to its fimbriated end it was grasped on the midportion with a Marcell clamp. The LigaSure device was used to remove the tube to the level of the cornua. The right fallopian tube was then identified and followed to its fimbriated end. It too was grasped on the mid midportion with a Marcell clamp. the LigaSure device was then used to remove the right tube in its entirety to the level of the cornua. A small bleeding area on the left salpingectomy site was secured with the Bovie. Hemostasis noted to be excellent at both salpingectomy sites. The posterior cul-de-sac was then suctioned for a very small amount of fluid and blood. The uterus was then gently placed back in the abdominal cavity. Both salpingectomy sites were reexamined and continue to have excellent hemostasis. The uterine incision was reexamined and a few superficial bleeding during sites were secured with the Bovie. At this point the uterine incision had excellent hemostasis. The rectus muscles were then brought together on the midline with individual stitches of 0 Monocryl. The fascia was then closed in a running fashion with 0 Vicryl. After irrigating the adipose layer, the skin edges were reapproximated with a subcuticular stitch of 4-0 Vicryl. Urine was clear at the end of the case patient tolerated the procedure well and was stable upon arrival in labor and delivery for immediate post operative care. I attest to the content of the Intraoperative Record and any orders documented therein. Any exceptions are noted below. OB Procedure Charges [id number] Add on Tubal for C/S
[2022-05-17] MEDS: KETOROLAC 30 MG/ML VIAL IV PRN ×2 (10:37→17:00)
[2022-05-17] MEDS: SIMETHICONE 80 MG CHEW PO SCH ×3 (13:20→23:42)
[2022-05-17] MEDS ORDERED: SODIUM CHLORIDE 0.9% 250 ML IV PRN (15:59)
[2022-05-17] MEDS: DOCUSATE SODIUM 100 MG CAP PO SCH (21:39)
[2022-05-18] MEDS: KETOROLAC 30 MG/ML VIAL IV PRN (00:42)
[2022-05-18] MEDS ORDERED: PROMETHAZINE HCL 25 MG in SODIUM CHLORIDE 0.9% 50 ML IV PRN (01:54)
[2022-05-18] MEDS ORDERED: MEPERIDINE HCL 50 MG/ML CARP IV PRN (01:54)
[2022-05-18] MEDS ORDERED: diphenhydrAMINE Capsule 25 MG CAP PO PRN (01:54)
[2022-05-18] MEDS ORDERED: ZOLPIDEM TARTRATE 5 MG TAB PO PRN (01:54)
[2022-05-18] MEDS ORDERED: ONDANSETRON INJ 2 MG/ML 2 ML VIAL IV PRN (01:54)
[2022-05-18] MEDS ORDERED: KETOROLAC 30 MG/ML VIAL IV PRN (01:54)
[2022-05-18] MEDS ORDERED: diphenhydrAMINE 50 MG/ML VIAL IV PRN (01:54)
[2022-05-18 06:37] LABS: Basophils # (auto) 0.06 K/uL (0-0.2); Basophils % (auto) 0.6 %; Eosinophils % (auto) 1.1 %; Hematocrit (blood only) 31.8 % (37.0-47.0); Immature Granulocytes # (auto) 0.06 K/uL (0.01-0.20); Immature Granulocytes % (auto) 0.6 %; Lymphocytes # (auto) 1.63 K/uL (1.2-3.4); Lymphocytes % (auto) 17.4 %; Mean Corpuscular Hemoglobin 30.4 pg (25.0-34.0); Mean Corpuscular Hgb Conc 34.6 g/dL (32.0-36.0); Mean Corpuscular Volume 87.8 fL (80.0-100.0); Mean Platelet Volume 9.4 fL (9.4-12.4); Monocytes # (auto) 0.88 K/uL (0.11-0.59); Monocytes % (auto) 9.4 %; Neutrophils # (auto) 6.63 K/uL (1.40-6.50); Neutrophils % (auto) 70.9 %; Platelet Count 202 K/uL (130-400); RDW Coefficient of Variation 13.8 % (11.5-14.5); RDW Standard Deviation 43.8 fL (36.4-46.3); Red Blood Count 3.62 M/uL (4.20-5.40); White Blood Count 9.36 K/ul (4.8-10.8)
--- NOTE | 2022-05-18 07:41 | Obstetrical Progress Note ---
Date of Service May 18, 2022 Assessment & Plan (1) care following delivery: POD#1 doing well. Ambulating, eating/drinking, pain controlled. . Bleeding scant. Incision CDI, abdomen soft. Discussed continued ambulation, advancing diet today. Subjective Ambulation: ambulating normally Voiding: no voiding problems Diet Tolerance:: regular diet Lochia:: Moderate Review of Systems All systems reviewed & are unremarkable except as noted in HPI & below Physical Exam Constitutional WD/WN, vitals as above no acute distress Respiratory normal respiratory effort Cardiovascular Rate/Rhythm: regular rate and regular rhythm Gastrointestinal (Abdomen) Inspection/Auscultation: abdomen normal to inspection; abdomen not distended Percussion/Palpation: abdomen soft Genitourinary OB Exam Abdomen: + fundal height Fundus: + firm; not tender Results & Data ([facility]) Vital Signs (Past 12 Hours) Vital Signs Temp Pulse Resp BP Pulse Ox O2 Del Method 05/18/22 03:07 36.7 C 70 18 100/63 97 Room Air 05/18/22 02:00 18 98 05/18/22 00:30 Room Air 05/18/22 00:55 18 95 05/18/22 00:00 16 96 05/17/22 23:00 18 97 05/17/22 22:00 16 95 05/17/22 23:31 36.6 C 69 18 114/68 99 Room Air 05/17/22 21:00 16 97 05/17/22 20:00 18 98
[2022-05-18] MEDS: DOCUSATE SODIUM 100 MG CAP PO SCH ×2 (08:18→20:53)
[2022-05-18] MEDS: PRENATAL VITAMIN 1 TAB PO SCH (08:18)
[2022-05-18] MEDS: FERROUS SULFATE 325 MG TAB PO SCH (08:18)
[2022-05-18] MEDS: SIMETHICONE 80 MG CHEW PO SCH ×4 (08:18→20:53)
[2022-05-18] MEDS: IBUPROFEN 600 MG TAB PO PRN ×4 (08:19→23:29)
[2022-05-18] MEDS: oxyCODONE/ACETAMINOPHEN 5mg/325mg TAB PO PRN ×4 (08:19→23:30)
[2022-05-18] MEDS ORDERED: bisacodyL 5 MG TABEC PO SCH (20:00)
[2022-05-19] MEDS: oxyCODONE/ACETAMINOPHEN 5mg/325mg TAB PO PRN ×3 (04:20→13:27)
[2022-05-19] MEDS: IBUPROFEN 600 MG TAB PO PRN ×3 (04:20→13:28)
[2022-05-19 05:57] LABS: Hematocrit (blood only) 30.6 % (37.0-47.0); Hemoglobin 10.5 g/dl (12.0-16.0)
[2022-05-19] MEDS ORDERED: Nursing to Pharmacy Communication SCH (07:30)
[2022-05-19] MEDS ORDERED: bisacodyL 10 MG SUPP PR PRN (08:58)
[2022-05-19] MEDS: DOCUSATE SODIUM 100 MG CAP PO SCH (09:36)
[2022-05-19] MEDS: SIMETHICONE 80 MG CHEW PO SCH ×2 (09:36→13:27)
[2022-05-19] MEDS: FERROUS SULFATE 325 MG TAB PO SCH (09:36)
[2022-05-19] MEDS: cephALEXin 500 MG CAP PO SCH ×2 (09:37→13:27)
[2022-05-19] MEDS: PRENATAL VITAMIN 1 TAB PO SCH (09:37)
--- NOTE | 2022-05-19 11:05 | Obstetrical Progress Note ---
Date of Service May 19, 2022 Assessment & Plan (1) care following delivery: very mild bleeding from incision just right of midline but an obvious bleeding site not identified. erythema above incision resolving but will continue Keflex outpatient steri strips were applied over the area to the right of midline. patient ready for discharge continue keflex 500mg qid for total of 7 days incision check in the office this week scripts for keflex , percocet and motrin sent to her pharmacy. Subjective Ambulation: ambulating normally Voiding: no voiding problems Passing Gas:: Yes Diet Tolerance:: regular diet Lochia:: Small Feeding Type:: breast feeding I was called to exam her incision last night for small amount BRB on her underwear and below her incision. a dressing was applied overnight. incision also was erythematous superior to the incision on the right side. Keflex was started last PM. patient has no complaints this morning. oral pain meds working well. Review of Systems All systems reviewed & are unremarkable except as noted in HPI & below Physical Exam Constitutional WD/WN, vitals as above Gastrointestinal (Abdomen) Inspection/Auscultation: + abdominal surgical incision dressing is dry and intact with a dime size area of BRB on the dressing noted just to the right of midline. no obvious bleeding site noted when dressing was removed. the erythema above the incision has lessened as well - no induration noted. Psychiatric A+Ox3, euthymic affect Genitourinary OB Exam Abdomen: + fundal height (2 below U) Fundus: + firm Results & Data ([facility]) Vital Signs (Past 12 Hours) Vital Signs Temp Pulse Resp BP Pulse Ox O2 Del Method 05/18/22 23:30 97.7 F 63 18 117/77 96 Room Air
--- NOTE | 2022-05-20 01:44 | Discharge Summary (DS) ---
DATE OF ADMISSION: 05/17/2022. DATE OF DISCHARGE: 05/19/2022. PRINCIPAL DIAGNOSIS: Intrauterine at 39 weeks, prior section, requesting repeat c esarean section, unwanted fertility, and multiparity. PRINCIPAL PROCEDURES: Repeat low transverse section and bilateral salpingectomies. HISTORY AND HOSPITAL COURSE: The patient is a 42-year-old 6, para 3-0-0-3 female, EDC of , who presents for repeat section and bilateral salpingectomy for sterilization. She had 2 vaginal deliveries followed by primary section for failure to progress. She is now r equesting repeat section with bilateral salpingectomy with this . She underwent th e section and salpingectomies without any complications. She remained afebrile throughout h er hospital course. On her first postop day, she was noted to have a little bit of spotting from the right side of her incision. Steri-Strips were then applied over this area, although an obvious blee ding site could not be identified. She was also noted to have some erythema on that same right side of the incision and superior to it. She was begun on Keflex 500 mg p.o. q.6 hours. On her second pos top day, the erythema had started to resolve, and there was only a tiny amount of bleeding on the jose alejandro ssing that was placed loosely over the Steri-Strips. She was eating regular food on her first postop day, ambulating and voiding without difficulty. Hemoglobin on admission was 12.8, hematocrit of 36. 2. First postop day hemoglobin 11.0, hematocrit 31.8. Second postop day, hemoglobin 10.5, hematocri t of 30.6. She was sent home with prescriptions for Motrin 600 mg p.o. q.6 hours p.r.n. pain, Percoc et 1 tablet p.o. q.4-6 hours p.r.n. pain and Keflex 500 mg q.6 hours for 7 days total. She is to hav e an appointment for an incision check in 4-5 days and the office will call her to set up that time. She is to call for temperature of 101 degrees or higher, heavy vaginal bleeding, burning with urinat ion, increased redness, drainage or pain in her incision, calf tenderness or any other concerns. Job ID: [id number]
== END 2022-05-19 15:10 | disposition home or self-care (01) | DRG 785 ==
LOC: 4S1 05:40 → 4E2 15:42 → EDSTATUS 05-23 07:30
PROC: M.PPTLD (2022-05-17 07:30)